=== PATIENT | male | born 1940 | race Two or more races ===

== ENCOUNTER 2019-10-17 10:55 | Inpatient (IN) | payer OTHER ==
[~2019-10-17] VITALS: Ht 172.7 cm; Wt 75.2 kg
[2019-10-17] MEDS ORDERED: SODIUM CHLORIDE 0.9% 1,000 ML IV ONE ×2 (11:27)
[2019-10-17] MEDS ORDERED: THIAMINE 100mg/ml INJ (200mg/2ml VIAL) IV ONE (11:30)
[2019-10-17 13:37] LABS: Basophils # (auto) 0 uL; Basophils % (auto) 0.2 % (0.0-2.0); Eosinophils # (auto) 0 uL; Eosinophils % (auto) 0.4 % (0.0-7.0); Hematocrit 36.4 % (41.0-53.0); Hemoglobin 12.1 g/dL (13.5-17.5); Lymphocytes # (auto) 0.4 uL; Mean Corpuscular Hemoglobin 32.7 pg (28.0-32.0); Mean Corpuscular Hgb Conc. 33.2 g/dL (32.0-36.0); Mean Corpuscular Volume 98.6 fL (80.0-100.0); Monocytes # (auto) 0.9 uL; Monocytes % (auto) 8.3 % (0.0-12.0); Neutrophils # (auto) 9.6 uL; Neutrophils % (auto) 87.1 % (37.0-80.0); Platelet Count (auto) 223 10^3/uL (140-450); Red Blood Cells 3.69 10^6/uL (4.5-5.90); Red Cell Distribution Width 13.6 % (11.8-14.3)
[2019-10-17 14:05] LABS: Chloride 107 mmol/L (98-107); Potassium 4.8 mmol/L (3.5-5.1); Sodium 138 mmol/L (136-145)
[2019-10-17 14:10] LABS: Alanine Aminotransferase 16 U/L (16-61); Albumin 2.8 g/dL (3.4-5.0); Anion Gap 6 (5-15); Aspartate Aminotransferase 23 U/L (15-37); BUN/Creatinine Ratio 11.3; Blood Urea Nitrogen 17 mg/dL (7-18); Calcium 8.6 mg/dL (8.5-10.1); Carbon Dioxide 25 mmol/L (21-32); GFR African American 58 mL/min; GFR Non-African American 48 mL/min; Glucose 110 mg/dL (74-106)
[2019-10-17 14:14] LABS: Alkaline Phosphatase 121 U/L (45-117); Bilirubin, Total 0.4 mg/dL (0.2-1.0); Total Protein 7.4 g/dL (6.4-8.2)
[2019-10-17] MEDS ORDERED: chlordiazePOXIDE HCL 5 MG CAP PO ONE (15:15)
[2019-10-17] MEDS ORDERED: MORPHINE SULF INJ 2 MG/ML SYRINGE 1ML IV PRN (16:15)
[2019-10-17] MEDS ORDERED: DEXTROSE (50%) 50ML SYRG IV PRN (16:15)
[2019-10-17] MEDS ORDERED: NITROGLYCERIN 0.4 MG SL TAB SL PRN (16:15)
[2019-10-17] MEDS ORDERED: D5W/SOD CHL 0.45% 1,000 ML IV ONE (16:15)
[2019-10-17] MEDS ORDERED: traMADol HCL 50 MG TAB PO PRN (16:15)
[2019-10-17] MEDS ORDERED: LACTULOSE 20Gm/30ML SOLN PO PRN (16:15)
[2019-10-17] MEDS ORDERED: ACETAMINOPHEN 500 MG TAB PO PRN (16:15)
[2019-10-17] MEDS ORDERED: ONDANSETRON HCL 4 MG/2 ML VIAL IV PRN (16:15)
[2019-10-17 16:32] LABS: Urine Bacteria NONE SEEN /hpf (None Seen); Urine Blood Negative /uL (Negative); Urine Specific Gravity 1.014 (1.001-1.035); Urine WBC 6 /hpf (0 - 3)
[2019-10-17] MEDS ORDERED: cefTRIAXone 1GM/50ML D5W 50 ML IV ONE (20:00)
[2019-10-17] MEDS: ACCU-CHEK COMFORT CURVE STRIP VI SCH ×2 (20:00→23:43)
--- NOTE | 2019-10-17 20:30 | NUR ---
Telemetry admit from [facility] admitted to Telemetry unit after SBAR received. Patient oriented to stephanie GUERRA RN, unit, room, bed, and unit policies regarding patient care and visiting hours. Patient now on continuous telemetry monitoring, tele box #[id number] and telemetry reading on arrival to unit is sinus rhythm . Patient weighed by bed scale and encouraged to call if they need something. All questions and concerns addressed, patient verbalized understanding. Note: Skin assessment BUE bruising, left elbow skin tear.
[2019-10-17] MEDS ORDERED: QUET50TA PO (21:42)
[2019-10-17] MEDS ORDERED: GLIM1TAB3 PO (21:42)
[2019-10-17] MEDS ORDERED: AMLO5TAB15 PO (21:42)
[2019-10-17] MEDS ORDERED: ATOR20TA50 PO (21:42)
[2019-10-17] MEDS: FAMOTIDINE 20 MG TAB PO SCH (21:49)
[2019-10-17 22:36] VITALS: BP 123/84
--- NOTE | 2019-10-17 23:40 | NUR ---
Accu check result 81 mg/dl, patient on D51/2NS@50 ml/hr.
[2019-10-18] MEDS: ACCU-CHEK COMFORT CURVE STRIP VI SCH ×4 (03:32→16:01)
--- NOTE | 2019-10-18 03:33 | NUR ---
Accu check done result 69 mg/dl, 1 box apple juice given, continues on D51/2 NS at 50 ml/hr.
[2019-10-18 06:11] VITALS: BP 113/59
--- NOTE | 2019-10-18 07:30 | NUR ---
Opening Shift Note Assumed care of patient, who is alert and oriented x4. No S/S of distress/SOB or pain. IV to left forearm is patent and intact, MD orders D5 1/2 NS running at 50 ml/hr. Bed is low, locked with 2x side rails up. Call light is within reach. Instructed on POC and to call for assist PRN, will continue to monitor for changes Q1hr and PRN.
[2019-10-18 09:00] VITALS: BP_SYST 115; BP_SYST 144; BP_DIAS 58; BP_DIAS 72
[2019-10-18] MEDS ORDERED: cefTRIAXone 1GM/50ML D5W 50 ML IV SCH (09:00)
[2019-10-18] MEDS: FAMOTIDINE 20 MG TAB PO SCH (09:04)
[2019-10-18] MEDS ORDERED: ENOXAPARIN SOD 40 MG/0.4 ML SYRINGE SC SCH (10:00)
[2019-10-18 10:49] LABS: Basophils # (auto) 0 uL; Basophils % (auto) 0.4 % (0.0-2.0); Eosinophils # (auto) 0.2 uL; Eosinophils % (auto) 2.4 % (0.0-7.0); Hematocrit 32.4 % (41.0-53.0); Hemoglobin 10.7 g/dL (13.5-17.5); Lymphocytes # (auto) 0.6 uL; Lymphocytes % (auto) 8.2 % (10.0-50.0); Mean Corpuscular Hemoglobin 32.6 pg (28.0-32.0); Mean Corpuscular Hgb Conc. 33.1 g/dL (32.0-36.0); Mean Corpuscular Volume 98.5 fL (80.0-100.0); Monocytes # (auto) 0.8 uL; Monocytes % (auto) 11.7 % (0.0-12.0); Neutrophils # (auto) 5.5 uL; Neutrophils % (auto) 77.3 % (37.0-80.0); Platelet Count (auto) 181 10^3/uL (140-450); Red Blood Cells 3.29 10^6/uL (4.5-5.90); Red Cell Distribution Width 13.7 % (11.8-14.3); White Blood Cell 7.1 10^3/uL (4.4-10.8)
[2019-10-18 11:17] LABS: Potassium 4.8 mmol/L (3.5-5.1)
[2019-10-18 11:25] LABS: Albumin 2.3 g/dL (3.4-5.0); BUN/Creatinine Ratio 9.6; Bilirubin, Total 0.2 mg/dL (0.2-1.0); Calcium 8.6 mg/dL (8.5-10.1); Total Protein 6.3 g/dL (6.4-8.2)
[2019-10-18 13:00] VITALS: BP 117/61
[2019-10-18] MEDS ORDERED: SODIUM CHLORIDE 0.9% 1,000 ML IV SCH (14:30)
--- NOTE | 2019-10-18 16:01 | NUR ---
Blood sugar assessments 8am: 83 mg/dl 12pm: 101 mg/dl 4pm: 102 mg/dl D5 1/2 NS DC'd and NS @75 ml/hr started at 1430 per MD orders.
[2019-10-18 16:06] VITALS: BP 117/61
[2019-10-18 17:53] VITALS: BP 138/80
--- NOTE | 2019-10-18 18:05 | NUR ---
Blood sugar assessment Post dinner BS: 101 mg/dl. Will discharge per MD order.
--- NOTE | 2019-10-18 19:19 | NUR ---
Family at bedside Patient dc'd at this time.
== END 2019-10-18 19:16 | disposition home or self-care (01) | DRG 638 ==
LOC: ER 10:55 → TELE 10:56 → TELE-WESTW 20:45
PROVIDERS: ADMIT Internal Medicine; ATTEND Internal Medicine
DX: E11.649 Type 2 diabetes mellitus with hypoglycemia without coma (principal); E44.0 Moderate protein-calorie malnutrition; I13.0 Hypertensive heart and chronic kidney disease with heart failure and stage 1 through stage 4 chronic kidney disease, or unspecified chronic kidney disease; F10.239 Alcohol dependence with withdrawal, unspecified; N39.0 Urinary tract infection, site not specified; E11.22 Type 2 diabetes mellitus with diabetic chronic kidney disease; E86.0 Dehydration; I25.10 Atherosclerotic heart disease of native coronary artery without angina pectoris; I50.9 Heart failure, unspecified; N18.3 Chronic kidney disease, stage 3 (moderate); F32.9 Major depressive disorder, single episode, unspecified; D72.829 Elevated white blood cell count, unspecified; K21.9 Gastro-esophageal reflux disease without esophagitis; M10.9 Gout, unspecified; Z90.49 Acquired absence of other specified parts of digestive tract
CPT/HCPCS: 36415; 71046; 80053; 80320; 81001; 82962; 83036; 83880; 84484; 85025; 87086; 96365; 96366; 96375; G0378; J0696; J2405